=== PATIENT | female | born 1960 | race Caucasian/White ===

== ENCOUNTER 2024-12-07 12:25 | Outpatient (CLI) | payer MEDICARE | END 2024-12-07 12:26 | disposition home or self-care (01) | LOC: CSHMRI 12:25 | PROVIDERS: ATTEND Specialist | DX: Z08 Encounter for follow-up examination after completed treatment for malignant neoplasm (principal); N63.25 Unspecified lump in the left breast, overlapping quadrants; Z85.3 Personal history of malignant neoplasm of breast | CPT/HCPCS: 82565; C8908 ==

== ENCOUNTER 2024-12-26 11:09 | Outpatient (CLI) | payer MEDICARE ==
[2024-12-26 12:05] LABS: #Basophils Less than 0.03 10x3/uL (0.0-0.2); #Eosinophils 0.08 10x3/uL (0.0-0.5); #Neutrophils 3.02 10x3/uL (1.5-8.4); %Basophils 0.4 % (0.0-2.0); %Eosinophils 1.5 % (0.0-6.0); %Monocytes 7.4 % (0.0-10.0); %Neutrophils 55.5 % (40.0-75.0); Hemoglobin 14.5 g/dL (12.0-15.5); Mean Corpuscular HGB CONC 33.7 g/dL (32.0-36.0); Mean Platelet Volume 10.8 fL (7.4-10.4); Platelet Count 230 10x3/uL (150-450); RBC Distribution Width 12.9 % (11.5-14.5); Red Blood Cell (RBC) Count 4.83 10x6/uL (3.90-5.03); White Blood Cell (WBC) Count 5.43 10x3/uL (3.5-10.5)
[2024-12-26 12:21] LABS: Anion Gap 13 mmol/L (10-20); BUN (Urea Nitrogen) 17 mg/dL (9.8-20.1); Calc. Creatinine Clearance 0 mL/min (70-130); Calcium 10.4 mg/dL (7.8-10.44); Carbon Dioxide 26 mmol/L (23-31); Chloride 107 mmol/L (98-107); Estimated GFR 90; Glucose 100 mg/dL (80-115); Potassium 3.8 mmol/L (3.5-5.1); Sodium 142 mmol/L (136-145)
== END 2024-12-26 11:10 | disposition home or self-care (01) ==
LOC: CSHLAB 11:09
PROVIDERS: ATTEND Specialist
DX: Z01.818 Encounter for other preprocedural examination (principal); C50.912 Malignant neoplasm of unspecified site of left female breast
CPT/HCPCS: 71046; 80048; 85025; 93005; 93010

== ENCOUNTER 2024-12-29 07:19 | Day surgery (SDC) | payer MEDICARE ==
[2024-12-26 11:39] VITALS: BMI 29.4
[2024-12-29] MEDS ORDERED: Ketorolac Tromethamine 30 MG (1 mL) VIAL ONE (10:13)
[2024-12-29] MEDS ORDERED: Acetaminophen 500 MG TAB ONE (10:13)
[2024-12-29] MEDS ORDERED: Midazolam HCl 2 mg/2 ml Vial ONE ×2 (10:59→12:26)
[2024-12-29] MEDS ORDERED: Scopolamine 1 mg/72 hour Patch ONE (10:59)
[2024-12-29] MEDS ORDERED: Isosulfan Blue 50 MG/5 ML VIAL ONE (11:57)
[2024-12-29] MEDS ORDERED: Lidocaine 1% (PF) 30 ML VIAL ONE (11:57)
[2024-12-29] MEDS ORDERED: Lidocaine 1% w/Epinephrine 1:200K 30 ML VIAL ONE (11:57)
[2024-12-29] MEDS ORDERED: Bupivacaine/Epinephrine 0.25% 30 ML VIAL ONE (11:57)
[2024-12-29] MEDS ORDERED: CEFAZOLIN 2 GM VIAL ONE (12:33)
[2024-12-29] MEDS ORDERED: fentaNYL 50 mcg/mL 1 mL Vial ONE ×5 (14:37→15:55)
[2024-12-29] MEDS ORDERED: Dexamethasone 4 mg/ml Vial ONE (14:38)
[2024-12-29] MEDS ORDERED: Ondansetron PF 4 MG/2 ML Vial ONE (14:38)
[2024-12-29] MEDS ORDERED: ePHEDrine Sulfate 50 MG/10 ML VIAL ONE (14:38)
[2024-12-29] MEDS ORDERED: Lidocaine 2% PF 5 ML VIAL ONE (14:39)
[2024-12-29] MEDS ORDERED: HYDROcodone/Acetaminophen 5/325 mg Tablet ONE (16:14)
== END 2024-12-29 16:49 | disposition home or self-care (01) ==
LOC: CSHSDC 07:19
PROVIDERS: ATTEND Specialist
PROC: 0HTU0ZZ Resection of Left Breast, Open Approach (ICD-10-PCS; principal; 2024-12-29)
PROC: 07B60ZZ Excision of Left Axillary Lymphatic, Open Approach (ICD-10-PCS; 2024-12-29)
DX: C50.812 Malignant neoplasm of overlapping sites of left female breast (principal); C77.3 Secondary and unspecified malignant neoplasm of axilla and upper limb lymph nodes; I10 Essential (primary) hypertension; K21.9 Gastro-esophageal reflux disease without esophagitis; G43.909 Migraine, unspecified, not intractable, without status migrainosus; Z96.659 Presence of unspecified artificial knee joint; Z90.49 Acquired absence of other specified parts of digestive tract; Z90.710 Acquired absence of both cervix and uterus; Z17.0 Estrogen receptor positive status [ER+]; Z17.21 Progesterone receptor positive status; Z17.32 Human epidermal growth factor receptor 2 negative status; Z88.2 Allergy status to sulfonamides; Z79.899 Other long term (current) drug therapy
CPT/HCPCS: 19303; 38525; 78195; A6258 ×2; A9541; C1713; J1100; J1885; J2250; J2405; J3010; Q9968; 88307; 88309

== ENCOUNTER 2025-10-24 11:49 | Outpatient (CLI) | payer MEDICARE ==
[2025-10-24 12:27] LABS: #Basophils Less than 0.03 10x3/uL (0.0-0.2); #Eosinophils 0.10 10x3/uL (0.0-0.5); #Monocytes 0.44 10x3/uL (0.0-1.1); #Neutrophils 2.90 10x3/uL (1.5-8.4); %Basophils 0.5 % (0.0-2.0); %Eosinophils 2.3 % (0.0-6.0); %Lymphocytes 21.3 % (18.0-47.0); %Monocytes 10.0 % (0.0-10.0); %Neutrophils 65.7 % (40.0-75.0); Hematocrit 39.6 % (34.9-44.5); Hemoglobin 13.5 g/dL (12.0-15.5); Mean Corpuscular Hemoglobin 30.4 pg (27.0-33.0); Mean Corpuscular Volume 89.2 fL (81.6-98.3); Platelet Count 221 10x3/uL (150-450); Red Blood Cell (RBC) Count 4.44 10x6/uL (3.90-5.03); White Blood Cell (WBC) Count 4.41 10x3/uL (3.5-10.5)
[2025-10-24 12:49] LABS: Anion Gap 9 mmol/L (10-20); BUN (Urea Nitrogen) 15 mg/dL (9.8-20.1); Calc. Creatinine Clearance 0 mL/min (70-130); Calcium 9.8 mg/dL (7.8-10.44); Carbon Dioxide 28 mmol/L (23-31); Chloride 109 mmol/L (98-107); Glucose 100 mg/dL (80-115); Potassium 4.2 mmol/L (3.5-5.1); Sodium 142 mmol/L (136-145)
== END 2025-10-24 11:50 | disposition home or self-care (01) ==
LOC: CSHLAB 11:49
PROVIDERS: ATTEND Specialist
DX: Z01.818 Encounter for other preprocedural examination (principal); N64.4 Mastodynia; Z85.3 Personal history of malignant neoplasm of breast; R94.31 Abnormal electrocardiogram [ECG] [EKG]
CPT/HCPCS: 71046; 80048; 85025; 93005; 93010

== ENCOUNTER 2025-10-31 08:33 | Day surgery (SDC) | payer MEDICARE ==
[2025-10-24 12:08] VITALS: BMI 28.7
[2025-10-31] MEDS ORDERED: Ketorolac Tromethamine 30 MG (1 mL) VIAL ONE (08:51)
[2025-10-31] MEDS ORDERED: Bupivacaine/Epinephrine 0.25% 30 ML VIAL ONE (10:17)
[2025-10-31] MEDS ORDERED: CEFAZOLIN 2 GM VIAL ONE (10:17)
[2025-10-31] MEDS ORDERED: PROPOFOL 20 ML ONE (10:31)
[2025-10-31] MEDS ORDERED: Scopolamine 1 mg/72 hour Patch ONE (10:54)
[2025-10-31] MEDS ORDERED: Famotidine/PF 20 mg/2ml Vial ONE (10:54)
[2025-10-31] MEDS ORDERED: Rocuronium Bromide 10 MG/ML (10ML VIAL) ONE (10:57)
[2025-10-31] MEDS ORDERED: HYDROcodone/Acetaminophen 5/325 mg Tablet ONE (14:36)
== END 2025-10-31 15:03 | disposition home or self-care (01) ==
LOC: CSHSDC 08:33
PROVIDERS: ATTEND Specialist
PROC: 0HBT0ZZ Excision of Right Breast, Open Approach (ICD-10-PCS; principal; 2025-10-31)
PROC: 0KXF0Z7 Transfer Right Trunk Muscle, Deep Inferior Epigastric Artery Perforator Flap, Open Approach (ICD-10-PCS; 2025-10-31)
DX: N60.21 Fibroadenosis of right breast (principal); D24.1 Benign neoplasm of right breast; F45.22 Body dysmorphic disorder; I10 Essential (primary) hypertension; Z85.3 Personal history of malignant neoplasm of breast; Z17.0 Estrogen receptor positive status [ER+]; Z17.21 Progesterone receptor positive status; Z88.2 Allergy status to sulfonamides; Z88.8 Allergy status to other drugs, medicaments and biological substances; Z90.49 Acquired absence of other specified parts of digestive tract; Z90.710 Acquired absence of both cervix and uterus; Z79.899 Other long term (current) drug therapy; Z98.890 Other specified postprocedural states
CPT/HCPCS: 14301; 19303; 36590; A6258; J1100; J1308; J1885; J2250; J2704; J3010; 88309